=== PATIENT | male | born 1990 | race Two or more races ===

== ENCOUNTER 2018-06-10 11:35 | Emergency (ER) | payer OTHER ==
[~2018-06-10] VITALS: Ht 185.4 cm; Wt 78.0 kg
[2018-06-10] MEDS ORDERED: HAIR REGROWTH TP (11:44)
[2018-06-10] MEDS ORDERED: IBUPROFEN600 MG ORAL (12:47)
[2018-06-10 12:50] VITALS: BP 112/68
--- NOTE | 2018-06-10 13:29 | Diagnostic Imaging Report ---
EXAM: XR Left Elbow Complete, 3 or More Views CLINICAL HISTORY: Left elbow pain. Patient fell and is unable to fully extend the elbow. TECHNIQUE: Frontal, lateral and oblique views of the left elbow. COMPARISON: No relevant prior studies available. FINDINGS: Bones/joints: Subtle nondisplaced fracture involving the articular surface of the radial head. No other fracture or dislocation identified. Elevation of the anterior elbow fat pad, representing a small elbow joint effusion. Soft tissues: Unremarkable. No radiodense foreign bodies. No soft tissue gas lucencies. IMPRESSION: 1. Nondisplaced fracture involving the articular surface of the radial head. 2. Small elbow joint effusion.
--- NOTE | 2018-06-10 22:01 | Emergency Room Report ---
History of Present Illness General Chief Complaint: Upper Extremity Injury Source: Patient Present Illness HPI The patient is a 27-year-old [id number] male presenting for left elbow injury. He states that he was rollerblading yesterday, fell backwards, and pain to his left elbow. Pain is now a 6 out of 10 dull ache and does not radiate. Worse with movement and touch. He denies previous injury to the elbow. He states that he is unable to fully extend his left arm. He denies any numbness or tingling. He denies any other injury or symptoms Allergies: Coded Allergies: No Known Allergies (Unverified , 06/10/18) Patient History Past Medical History: see triage record Pertinent Family History: none Reviewed Nursing Documentation: PMH: Agreed; PSxH: Agreed Nursing Documentation-PMH Past Medical History: No Stated History Review of Systems All Other Systems: negative except mentioned in HPI Physical Exam Vital Signs Date Time Temp Pulse Resp B/P (MAP) Pulse Ox O2 Delivery O2 Flow Rate FiO2 06/10/18 11:38 98.2 79 14 111/64 97 Room Air 98.2 Sp02 EP Interpretation: reviewed, normal General Appearance: no apparent distress, alert, GCS 15, non-toxic Head: normocephalic, atraumatic Musculoskeletal: decreased range of motion - L elbow unable to extend past 120 degrees, tender - L elbow Neurologic: alert, oriented x3, responsive, motor strength/tone normal, sensory intact, speech normal Psychiatric: judgement/insight normal, memory normal, mood/affect normal, no suicidal/homicidal ideation Skin: normal color, no rash, warm/dry, well hydrated Procedures Splinting Splinting : Consent: Verbal Location: L arm Pre-Made Type: sling Pre-Proc Neuro Vasc Exam: normal Post-Proc Neuro Vasc Exam: normal Patient Tolerated: Well Complications: None Medical Decision Making PA Attestation Dr. Angel is my supervising physician. Patient management was discussed with my supervising physician Diagnostic Impression: Primary Impression: Radial head fracture Qualified Codes: S52.125A - Nondisplaced fracture of head of left radius, initial encounter for closed fracture ER Course The patient is a 27-year-old [id number] male presenting for left elbow injury Ddx considered include but not limited to sprain/strain, fracture, contusion PE: NAD Left elbow: Unable to extend past approximately 120. There is tenderness to palpation over the radial side. No obvious deformity. No ecchymosis. SILT Left elbow x-ray shows a small fracture of the radial head. See radiologist report L arm sling place and patient is told he needs to F/U with ortho [facility]. He understands. Prescription for pain medication is given. ER precautions given Other X-Ray Diagnostic Results Other X-Ray Diagnostic Results : X-Ray ordered: L elbow # of Views/Limited Vs Complete: 3 View Indication: Pain EP Interpretation: Yes PA Xray: Interpretation reviewed Interpretation: no dislocation, other - radial head fracture Impression: Other - L radial head fracture Electronically Signed by: Abdi Hernandez PA-C Last Vital Signs Date Time Temp Pulse Resp B/P (MAP) Pulse Ox O2 Delivery O2 Flow Rate FiO2 06/10/18 12:50 [id number] 84 15 112/68 98 Room Air 209.5 Status: improved Disposition: HOME, SELF-CARE Condition: Improved Scripts Ibuprofen* (MOTRIN*) 600 Mg Tablet 600 MG ORAL Q8H PRN for For Pain, #30 TAB 0 Refills Prov: ABDI HERNANDEZ 06/10/18 Referrals: NOT CHOSEN [facility]/,REFERRING (PCP) Patient Instructions: How to Use a Sling, Radial Head Fracture Additional Instructions: I discussed my findings with the patient. All questions and concerns have been answered. Treatment and medication compliance have been addressed. 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 Return to ED if pain remains or worsens, numbness or tingling occurs, new rash is noticed, fever is noticed, or if needed for any reason. Patient verbalized understanding of discharge instructions. ABDI HERNANDEZ Jun 10, 2018 22:01
== END 2018-06-10 12:50 | disposition home or self-care (01) ==
LOC: EDBD 11:35 → EMR 12:30
DX: S52.125A Nondisplaced fracture of head of left radius, initial encounter for closed fracture (principal); W19.XXXA Unspecified fall, initial encounter; Y93.51 Activity, roller skating (inline) and skateboarding; Y92.9 Unspecified place or not applicable; Y92.89 Other specified places as the place of occurrence of the external cause
CPT/HCPCS: 29105; 99283